=== PATIENT | male | born 1975 | race Caucasian/White ===

== ENCOUNTER 2018-08-11 04:37 | Emergency (ER) | payer OTHER ==
[~2018-08-11] VITALS: Ht 167.6 cm; Wt 68.0 kg
[2018-08-11] MEDS ORDERED: PROTONIX 20 MG20 M1 (04:48)
[2018-08-11] MEDS ORDERED: BLEPH-105 ML OPHTHALMIC (05:24)
[2018-08-11 05:57] VITALS: BP 131/92
== END 2018-08-11 05:57 | disposition home or self-care (01) ==
LOC: M.ERS 04:37
DX: T15.91XA Foreign body on external eye, part unspecified, right eye, initial encounter (principal); F17.210 Nicotine dependence, cigarettes, uncomplicated; X58.XXXA Exposure to other specified factors, initial encounter; Y93.89 Activity, other specified; Y92.89 Other specified places as the place of occurrence of the external cause; Y99.8 Other external cause status